=== PATIENT | male | born 1975 | race Caucasian/White ===

== ENCOUNTER → 2018-01-14 09:33 | Outpatient (CLI) | payer OTHER, SELFPAY ==
[2018-01-14 10:32] LABS: Hemoglobin A1C 5.6 % (0.0-7.0)
[2018-01-14 10:58] LABS: Chol/HDL Ratio 2.9 (1-3.5); Cholesterol 130 mg/dL (140-200); HDL Cholesterol 45 mg/dL (27-67); LDL Cholesterol 74 mg/dL (0-130); Triglycerides 55 mg/dL (30-200); VLDL Cholesterol 11 mg/dL (0-40)
[2018-01-15 09:18] LABS: Creatinine, Urine 172.9 mg/dL (Not Estab.); Microalbumin, Urine 4.1 ug/mL (Not Estab.)
[2018-01-15 09:20] LABS: Vitamin D 25 Hydroxy 34.4 ng/mL (30.0-100.0)
[2018-01-15 13:00] LABS: Alanine Aminotransferase 45 U/L (12-78); Albumin/Globulin Ratio 1.2 (1.1-1.8); Alkaline Phosphatase 114 U/L (46-116); Anion Gap 16.3 mEq/L (5-15); Aspartate Amino Transferase 25 U/L (15-37); Bilirubin,Total 0.8 mg/dL (0.2-1.0); Blood Urea Nitrogen 10 mg/dL (7-18); Calcium 8.8 mg/dL (8.5-10.1); Carbon Dioxide 25 mmol/L (21.0-32.0); Chloride 104 mmol/L (98-107); Creatinine,Serum 0.94 mg/dL (0.70-1.30); Estimated Glomerular Filt Rate 87 ml/min (>60); GFR (African American) 105 ML/MIN (>60); Globulin 3.4 gm/dl (1.3-3.2); Glucose 108 mg/dL (74-106); Potassium 4.3 mmoL/L (3.5-5.1); Sodium 141 mmol/L (136-145); Total Protein,Serum 7.4 gm/dL (6.4-8.2)
== END ==
PROVIDERS: Visit Provider Family Medicine
DX: R73.01 Impaired fasting glucose (principal); I10 Essential (primary) hypertension; E55.9 Vitamin D deficiency, unspecified
CPT/HCPCS: 36415; 80053; 80061; 82043; 82570; 82652; 83036

== ENCOUNTER 2020-01-17 18:18 | Emergency (ER) | payer BC, SELFPAY ==
[2020-01-17 18:29] VITALS: BP 110/68; PULSE 105; RESP 20; TEMP 36.7; O2SAT 100; BMI 38.0
[2020-01-17 18:46] VITALS: BP 110/68; PULSE 105; RESP 20; TEMP 36.7; O2SAT 100; BMI 37.9
--- NOTE | 2020-01-17 18:50 | PC.NURSE ---
DR. HARGROVE AT BEDSIDE
[2020-01-17 18:51] VITALS: BP 112/64; PULSE 99; RESP 16; O2SAT 98; BMI 36.6
--- NOTE | 2020-01-17 18:53 | PC.NURSE ---
PATIENT SENT TO ER PER SID CARUSO APRN FOR REMOVAL OF HOOK
--- NOTE | 2020-01-17 19:02 | [facility].EDABDPAI ---
ED Disposition Clinical Impression: Foreign object left in body during removal of catheter or packing Disposition: Home, Self-Care Condition on Discharge: Good Instructions: DI for Skin Abscess Referrals: Shemar Valderrama MD [Primary Care Provider] - - Critical Care Critical Care Time: No Attestation: On 01/17/20, the high probability of a clinically significant, sudden or life threatening deterioration of the following system(s) required my full and direct attention, intervention and personal management. The time I documented below is in addition to time spent performing reported procedures but includes the following listed in this critical care notation. Medical Decision Making - Medical Records Medical records reviewed: Yes: I reviewed the patient's medical records. - Clem Inquiry Pt receiving controlled substance: No Vital Signs: 01/17/20 18:29 01/17/20 18:46 Temperature 98.1 F 98.1 F Temperature Source Oral Oral Pulse Rate [Right] 105 H 105 H Respiratory Rate 20 20 Blood Pressure [Right Arm] 110/68 110/68 Blood Pressure Mean [Right Arm] 82 82 Blood Pressure Source [Right Arm] Automatic Cuff Blood Pressure Position [Right Arm] Sitting 02 Sat by Pulse Oximetry 100 100 Oxygen Delivery Method Room Air - Lab Data Lab results reviewed: Yes: I reviewed the patient's lab results. Abdominal Pain HPI - General Chief Complaint: Skin/Abscess/Foreign Body Stated Complaint: AO 06 1800 fish hook in stomach Time Seen by Provider: 01/17/20 19:00 Mode of Arrival: Ambulatory Source of Information: Patient Limitations: No Limitations Description of Symptoms (Recalled from ER Triage Doc. by RN): PARTIAL FISH HOOK INSIDE LEFT SIDE OF ABDOMEN - History of Present Illness HPI narrative: Patient has a fishhook in his abdomen.. - Related Data Home Medications Medication Instructions Recorded Confirmed losartan 50 mg tablet 50 mg PO DAILY 03/24/19 03/24/19 Previous Rx's Medication Instructions Recorded triamcinolone acetonide 0.5 % 1 applic TOPICAL BID 7 Days #15 g 03/24/19 topical cream Allergies Allergy/AdvReac Type Severity Reaction Status Date / Time Penicillins [PENICILLINS] Allergy Unknown VISUAL Unverified 03/24/19 12:38 [facility] History - Hepatitis A Screen Drug use history?: No High risk sexual behaviors?: No History of sexually transmitted infection?: No Currently employed?: No Childcare worker?: No Do you have indoor plumbing?: Yes Do you have electricity?: Yes Attestation statement:: This patient has been screened for Hepatitis A risk factors. I have reviewed the patient's past medical history: Yes Medical History: Reports:: Hypertension Other Surgeries: Yes: Other (right hand knuckles) Amputation: No Fractures: No - Social History Smoking Status: Never smoker Alcohol Intake: current Alcohol Intake Frequency:: holidays/special occasions only Substance Use Type: denies use Occupational Status: other Housing: house Household Members: family Family Hx:: Cancer, Heart Attack ROS Obtained: Yes All systems reviewed & no additional complaints - Constitutional Constitutional: Reports system reviewed and no additional complaints, except as docu - Eyes Eyes: Reports system reviewed and no additional complaints, except as docu - ENT Ears, Nose, Mouth, and Throat: Reports system reviewed and no additional complaints, except as docu - Cardiovascular Cardiovascular: Reports system reviewed and no additional complaints, except as docu - Respiratory Respiratory: Yes system reviewed and no additional complaints, except as docu - Gastrointestinal Gastrointestingal: Reports: system reviewed and no additional complaints, except as docu - Genitourinary Male Genitourinary: Reports system reviewed and no additional complaints, except as docu Female Genitourinary: Reports system reviewed and no additional complaints, except as docu - Musculo
[2020-01-17 19:07] VITALS: BP 118/68; PULSE 92; RESP 16; TEMP 36.7; O2SAT 98
== END 2020-01-17 19:15 | disposition home or self-care (01) ==
LOC: UTC 18:36 → ER 18:54
PROVIDERS: Emergency Provider Family Medicine; PCP Family Medicine
DX: S30.851A Superficial foreign body of abdominal wall, initial encounter (principal); Z88.0 Allergy status to penicillin
CPT/HCPCS: 10120; 99283